=== PATIENT | male | born 1955 | race Caucasian/White ===

== ENCOUNTER 2016-06-10 16:05 | Emergency (ER) | payer OTHER ==
[~2016-06-10] VITALS: Ht 172.7 cm; Wt 109.0 kg
[2016-06-10] MEDS ORDERED: MOTRIN800 MG PO (18:02)
[2016-06-10 18:09] VITALS: BP 150/86
== END 2016-06-10 18:15 | disposition home or self-care (01) | DRG 552 ==
LOC: ED 16:05
DX: S13.4XXA Sprain of ligaments of cervical spine, initial encounter (principal); S23.3XXA Sprain of ligaments of thoracic spine, initial encounter; S01.511A Laceration without foreign body of lip, initial encounter; V43.52XA Car driver injured in collision with other type car in traffic accident, initial encounter; W22.10XA Striking against or struck by unspecified automobile airbag, initial encounter; Y92.411 Interstate highway as the place of occurrence of the external cause